=== PATIENT | female | born 1955 | race Caucasian/White ===

== ENCOUNTER → 2018-06-04 | Outpatient (CLI) | payer OTHER | END | disposition home or self-care (01) | LOC: LAB EV 14:25 → LAB SHORT 14:25 | DX: J02.9 Acute pharyngitis, unspecified (principal) | CPT/HCPCS: 87070; 87077; 87186 ==

== ENCOUNTER 2018-07-06 07:16 | Day surgery (SDC) | payer OTHER ==
[~2018-07-06] VITALS: Ht 170.2 cm; Wt 87.9 kg
[2018-07-06] MEDS ORDERED: PRAVASTATIN SOD10 MG (08:03)
== END 2018-07-06 10:07 | disposition home or self-care (01) ==
LOC: ORSCSDS 07:16
PROVIDERS: Student in an Organized Health Care Education/Training Program
PROC: 0DBL8ZX Excision of Transverse Colon, Via Natural or Artificial Opening Endoscopic, Diagnostic (ICD-10-PCS; principal; 2018-07-06 09:00)
PROC: 0DBE8ZX Excision of Large Intestine, Via Natural or Artificial Opening Endoscopic, Diagnostic (ICD-10-PCS; principal; 2018-07-06 09:00)
PROC: 0DBM8ZX Excision of Descending Colon, Via Natural or Artificial Opening Endoscopic, Diagnostic (ICD-10-PCS; principal; 2018-07-06 09:00)
DX: R19.4 Change in bowel habit (principal); D12.3 Benign neoplasm of transverse colon; K64.8 Other hemorrhoids; R14.0 Abdominal distension (gaseous); Z86.010 Personal history of colon polyps; F41.9 Anxiety disorder, unspecified; G25.0 Essential tremor; Z79.899 Other long term (current) drug therapy
CPT/HCPCS: 88305; J0330; J0461; J1980; J2405; J2704